=== PATIENT | female | born 1975 | race Caucasian/White ===

== ENCOUNTER 2024-08-31 07:39 | Emergency (ER) | payer BC ==
--- OUTSIDE RECORDS SUMMARY | 2024-08-31 07:42 | XMS REPORT | Continuity of Care Document ---
Author Name Unknown Address [address] [place] [address] thconnect Address [address] [address] [address] [place] [address] Care Team Providers Care Gas Truck Driver Name Role Phone [email or web address]_S Attending Clinician Unavaila ble [email or web address]_S Admitting Clinician Unavaila ble Payers Payer Name Policy Type Policy Number Effective Date Expirati on Date Source [place] [id number] 2023 00:00:00 Allergies, Adverse Reactions, Alerts Allergy Name Allergy Type Status Severity Reaction(s) Onset Date Inactive Date Treating Clinician Comments Source [place] Allergy to substanc e Active [facility] Social History Smoking Status Start Date Stop Date Source Never Smoker [facility] Medications Ordered Medication Name Filled Medication Name Start Date Stop Date Current Medication? Ordering Clinician Indication Dosage Frequency Signature (SIG) Comments Components Source atorvastati n 40 mg tablet TAKE 1 TABLET BY MOUTH EVERY DAY atorvastati n 40 mg tablet TAKE 1 TABLET BY MOUTH EVERY DAY No atorvastat in 40 mg tablet TAKE 1 TABLET BY MOUTH EVERY DAY [facility] buspirone 10 mg tablet buspirone 10 mg tablet No buspirone 10 mg tablet [facility] citalopram 40 mg tablet TAKE 1 TABLET BY MOUTH EVERY DAY citalopram 40 mg tablet TAKE 1 TABLET BY MOUTH EVERY DAY No citalopram 40 mg tablet TAKE 1 TABLET BY MOUTH EVERY DAY [facility] hydroxyzine pamoate 25 mg capsule TAKE 1 CAPSULE (25 MG) BY MOUTH 3 TIMES PER DAY NEEDED hydroxyzine pamoate 25 mg capsule TAKE 1 CAPSULE (25 MG) BY MOUTH 3 TIMES PER DAY NEEDED No hydroxyzin e pamoate 25 mg capsule TAKE 1 CAPSULE (25 MG) BY MOUTH 3 TIMES PER DAY NEEDED [facility] metoclopram aubrey 10 mg tablet TAKE 1 TABLET BY MOUTH EVERY 6 HOURS NEEDED metoclopram aubrey 10 mg tablet TAKE 1 TABLET BY MOUTH EVERY 6 HOURS NEEDED No metoclopra mide 10 mg tablet TAKE 1 TABLET BY MOUTH EVERY 6 HOURS NEEDED [facility] Mounjaro 10 mg/0.5 mL subcutaneou s pen injector INJECT 10 MG SUBCUTANEOU SLY WEEKLY Mounjaro 10 mg/0.5 mL subcutaneou s pen injector INJECT 10 MG SUBCUTANEOU SLY WEEKLY No Mounjaro 10 mg/0.5 mL subcutaneo us pen injector INJECT 10 MG SUBCUTANEO USLY WEEKLY [facility] Nurtec ODT 75 mg disintegrat ing tablet TAKE 1 TABLET BY MOUTH DAILY NEEDED. NO MORE THAN ONE DOSE IN 24 HOURS. Nurtec ODT 75 mg disintegrat ing tablet TAKE 1 TABLET BY MOUTH DAILY NEEDED. NO MORE THAN ONE DOSE IN 24 HOURS. No Nurtec ODT 75 mg disintegra ting tablet TAKE 1 TABLET BY MOUTH DAILY NEEDED. NO MORE THAN ONE DOSE IN 24 HOURS. [facility] ondansetron 4 [address] disintegr[address] ing tablet PLACE 1 TABLET ON THE TONGUE AND ALLOW TO DISSOLVE EVERY 8 HOURS NEEDED ondansetron 4 mg disintegrat ing tablet PLACE 1 TABLET ON THE TONGUE AND ALLOW TO DISSOLVE EVERY 8 HOURS NEEDED No ondansetro n [address] disintegra ting tablet PLACE 1 TABLET ON THE TONGUE AND ALLOW TO DISSOLVE EVERY 8 HOURS NEEDED [facility] trazodone 100 mg tablet TAKE 1 TABLET BY MOUTH DAILY NEEDED AT BEDTIME trazodone 100 mg tablet TAKE 1 TABLET BY MOUTH DAILY NEEDED AT BEDTIME No trazodone 100 mg tablet TAKE 1 TABLET BY MOUTH DAILY NEEDED AT BEDTIME [facility] trazodone 50 mg tablet TAKE 1 TABLET BY MOUTH EVERYDAY AT BEDTIME trazodone 50 mg tablet TAKE 1 TABLET BY MOUTH EVERYDAY AT BEDTIME No trazodone 50 mg tablet TAKE 1 TABLET BY MOUTH EVERYDAY AT BEDTIME [facility] Vital Signs Vital Name Observation Time Observation Value Comments S ource BP Diastolic 2024-01-27 00:00:00 82 mm[Hg] [facility] BP Systolic 2024-01-27 00:00:00 121 mm[Hg] [facility] BMI (Body Mass Index) 2024-01-27 00:00:00 30.3 kg/m2 [facility] Body Weight 2024-01-27 00:00:00 188 [lb_av] [facility] Height 2024-01-27 00:00:00 66 [in_i] [facility] Procedures Procedure Date / Time Performed Performing Clinicia n Source MAMMO, screening, digital, bilateral 2024-01-27 00:00:00 [facility] Cholecystectomy 2021-09-22 00[facility] 2020-09-22 00:00:00 [facility] Left Oophorectomy 2013-09-22 00:00:00 [facility] Plan of Care Planned Activity Planned Date Details Comments Source Diagnostic Test Pending 2024-01-27 00:00:00 pap, LB + HPV [code = pap, LB + HPV] [facility] Future Appointment 2025-01-26 14:00:00 Michelle tejeda, [address]; [address], [place] [address] [facility] Encounters Start Date/Time End Date/Time Encounter Type Admission Type Attending [facility] Facility Care Department Encounter ID Source 2024-01-27 00:00:00 2024-01-27 00:00:00 KEVIN Hernandez: [address], [address], [place] [address] , Ph. [facility] - [email or web address]_Martha [facility]* [id number] [facility] 2023-12-30 00:00:00 2023-12-30 00:00:00 Outpatient [email or web address]_Karlene wells_S [facility] [id number] [facility]
[2024-08-31 08:49] LABS: Absolute Eosinophils 0.3 K/uL (0-0.5); Absolute Lymphocytes (CBC) 0.8 K/uL (0.7-4.9); Absolute Monocytes 0.4 K/uL (0.1-1.3); Absolute Neutrophil 2.8 K/uL (1.8-8.0); Basophils % 0.9 % (0-1.3); Eosinophils % 6.5 % (0-4.4); Hematocrit 45.2 % (36.0-45.0); Hemoglobin 15.1 g/dL (12.0-15.0); Lymphocytes % 18.6 % (15.3-44.8); MCH 30.3 pg (27.0-35.0); MCHC 33.4 g/dL (32.0-36.0); MCV 90.7 fL (80-100); MPV 8.5 fL (7.6-11.3); Monocytes % 8.8 % (3.3-12.3); Neutrophils % 65.2 % (41.7-73.7); Nucleated Red Blood Cells % 0.2 % (0-0); Platelets 179 thou/uL (152-406); RBC Red Blood Cell Count 4.98 M/uL (3.86-4.86)
[2024-08-31 08:56] LABS: PT Prothrombin Time 10.6 SECONDS (9.4-12.5); PTT, Activated Partial Thromb 31.3 SECONDS (24.3-36.9); Protime INR 0.94
[2024-08-31 09:07] LABS: ALT/SGPT 22 U/L (13-56); AST/SGOT < 10 U/L (15-37); Albumin/Globulin Ratio 1.5 (1.1-1.8); Alkaline Phosphatase 60 U/L (45-117); Anion Gap 8.6 mEq/L (5.0-15.0); BUN Blood Urea Nitrogen 18 mg/dL (7-18); Bicarbonate 27 mEq/L (21-32); Bilirubin Direct < 0.2 mg/dL (0-0.2); Bilirubin Indirect, Calculated 0.4 mg/dL (0.2-0.8); Bilirubin Total 0.6 mg/dL (0.2-1.0); Globulin 2.7 g/dL (2.3-3.5); Glomerular Filtration Rate 58 ml/min (=/>90); Glucose Level 88 mg/dL (74-106); Magnesium 2.1 mg/dL (1.6-2.4); Potassium 3.6 mEq/L (3.5-5.1); Protein, Total 6.7 g/dL (6.4-8.2); Sodium Level 136 mEq/L (136-145); Troponin High Sensitivity < 3.0 pg/mL (<58.9)
--- NOTE | 2024-08-31 09:39 | RAD REPORT ---
EXAM: CT Head Brain Wo Cont HISTORY: syncope, fall COMPARISON: None TECHNIQUE: Multiple contiguous axial images were obtained for a CT of the brain without contrast. Sag ittal and coronal reformats were performed. One or more of the following dose reduction techniques were used: Automated exposure control, adjus tment of the mA and kV according to patient size, and iterative reconstruction. Unless otherwise specified, incidental findings do not require dedicated imaging follow-up. FINDINGS: No evidence of hydrocephalus, intracranial hemorrhage, or extra-axial fluid collection. The brain is normal in morphology. The calvarium is intact. The visualized paranasal sinuses and mastoid air cells are essentially clear . IMPRESSION: No evidence of acute intracranial abnormality.
--- NOTE | 2024-08-31 09:47 | RAD REPORT ---
EXAMINATION: ONE VIEW CHEST XR CLINICAL INDICATION: Female, 49 years old.,syncope TECHNIQUE: Frontal chest projection is submitted. Examination is limited by patient positioning and t echnique. COMPARISON: No prior exam. FINDINGS: The lungs are mildly hyperinflated suggesting COPD but grossly clear. No pneumothorax or sizable eff usion. The heart is normal in size. Mediastinal contours are unremarkable. Dextroconvex midthoracic scoliosis. IMPRESSION: No acute intrathoracic abnormalities.
--- NOTE | 2024-08-31 09:48 | RAD REPORT ---
EXAMINATION: XR Lumbar Spine 3 Views CLINICAL INDICATION: Female, 49 years old. [facility] MAIN PAIN Bed Name: 7 TECHNIQUE: AP, lateral, focused lateral lumbosacral views of the lumbar spine were obtained. COMPARISON: No prior exam. FINDINGS: For purposes of this dictation, it is assumed that there are 5 lumbar type vertebral bodies. ALIGNMENT: There is normal alignment of the lumbar spine. BONES: Vertebral bodies are normal in height. No aggressive osseous lesions. Multilevel endplate and facet remodeling, with facet arthropathy most pronounced at L4-5. DISCS: Disc heights are maintained. IMPRESSION: No acute lumbar spine abnormality. Degenerative changes as above.
--- NOTE | 2024-08-31 09:49 | RAD REPORT ---
EXAMINATION: XR Sacrum And Coccyx HISTORY: PAIN TECHNIQUE: 3 radiographic views of the sacrum and coccyx. FINDINGS: No acute fracture. Up to moderate sacroiliac joint degenerative changes more pronounced on the left. No focal suspicious osseous lesion. The visualized hip joints and symphysis pubis are intact.
--- NOTE | 2024-08-31 09:58 | EDPHYS ---
Physician Documentation [facility] Name: Joy Marcum Age: 49 yrs Sex: Female : 1975 Arrival Date: 08/31/2024 Time: 07:39 Bed 7 Private MD: ED Physician Jordin Ortiz HPI: 08/31 11:26 This 49 yrs old Female presents to ER via Ambulatory with complaints of Dizziness, Near ms3 Syncope, Vomiting. 11:26 Joy Marcum is a 49-year-old female who presents to the Emergency Department ms3 with a history of vomiting, which began on Friday and persisted through Friday. She reports being unable to keep food or water down during this period. On Friday, she experienced shakiness, dizziness, and a general feeling of weakness. She had an episode of syncope when she got up to go to work. Another episode occurred when she got up in the middle of the night to let her dog in, resulting in a fall. This morning, she felt faint in the shower, prompting her decision to come to the ER. She reports not having eaten much in the past three days and has been experiencing intermittent nausea. There is no focal numbness or weakness, and she denies any significant head injury from her falls.. Historical: - Allergies: 07:50 No Known Allergies; ss - Home Meds: 07:50 Tirzepitide [Active]; citalopram oral [Active]; ss - PMHx: 07:50 Anxiety; ss - Immunization history:: Client reports receiving the 2nd dose of the Covid vaccine. - Infectious Disease History:: Denies. - Social history:: Smoking status: Patient denies any tobacco usage or history of. ROS: 11:26 Constitutional: Negative for fever, and chills. Cardiovascular: Negative for chest ms3 pain, and palpitations. Respiratory: Negative for shortness of breath, cough, wheezing, and pleuritic chest pain, Abdomen/GI: Negative for abdominal pain, nausea, vomiting, diarrhea, and constipation, MS/Extremity: Negative for injury and deformity, Skin: Negative for injury, rash, and discoloration, 11:26 Neuro: Positive for syncope, Exam: 09:29 ECG was reviewed by the Attending Physician. ms3 11:26 Constitutional: This is a well developed, well nourished patient who is awake, alert, ms3 and in no acute distress. Chest/axilla: Normal chest wall appearance and motion. Nontender with no deformity. Cardiovascular: Regular rate and rhythm with a normal S1 and S2. No gallops, murmurs, or rubs. Normal PMI, no JVD. No pulse deficits. Respiratory: Lungs have equal breath sounds bilaterally, clear to auscultation and percussion. No rales, rhonchi or wheezes noted. No increased work of breathing, no retractions or nasal flaring. Abdomen/GI: Soft, non-tender, with normal bowel sounds. No distension or tympany. No guarding or rebound. No evidence of tenderness throughout. 11:26 Neuro: Orientation: is normal, to person, place, time \T\ situation. Mentation: is normal, Memory: is normal, Cranial nerves: grossly normal, CN II- XII are normal as tested, Cerebellar function: is grossly normal, normal finger to nose testing, Motor: is normal, Sensation: is normal, no obvious gross deficits, Gait: is steady, at a normal pace, Vital Signs: 07:48 BP 109 / 84; Pulse 93; Resp 16; Temp 98.2(TE); Pulse Ox 100% on R/A; Weight 66.68 kg; ss Height 5 ft. 6 in. ; Pain 5/10; 08:10 BP 101 / 78; Pulse 83; Temp 97.5(O); Pulse Ox 99% on R/A; sa1 10:00 BP 102 / 80; Pulse 82; Resp 16; Pulse Ox 100% on R/A; db 07:48 Body Mass Index 23.73 (66.68 kg, 167.64 cm) ss 07:48 Pain Scale: Adult ss MDM: 08:07 Medical Screening Exam initiated ms3 09:56 ED course: [place] syncope rule: No history of ingestive heart failure, ms3 hematocrit greater than 30, EKG normal, no shortness of breath, systolic blood pressure greater than 90. Patient is low risk. 11:26 Differential diagnosis: generalized weakness, hypovolemia, idiopathic dizziness, ms3 syncope. Data reviewed: vital signs, nurses notes, lab test result(s), EKG, radiologic studies, and as a result, I will discharge patient. Consideration of Admission/Observation Escalation of care including admission/observation considered. Discussed observation with patient and her and they declined.. Historians other than the Patient: Spouse/Significant Other: Patient's . Counseling: I had a detailed discussion with the patient and/or guardian regarding the historical points, exam findings, and any diagnostic results supporting the discharge/admit diagnosis, lab results, radiology results, the need for outpatient follow up, to return to the emergency department if symptoms worsen or persist or if there are any questions or concerns that arise at home. Special discussion:. ED course: Observation discussed with patient and her and they declined. Patient to follow-up with primary care physician in 2 to 3 days. Patient understands and agrees with plan. All questions were answered. Return precautions discussed include worsening symptoms, or any other concerns. On reevaluation patient is alert and oriented x 4, no apparent distress, nontoxic-appearing, ambulatory in the emergency department, speaking full sentences. 08/31 08:07 Order name: Basic Metabolic Panel; Complete Time: 09:29 ms3 08/31 08:07 Order name: CBC with Diff; Complete Time: 09:29 ms3 08/31 08:07 Order name: Hepatic Function; Complete Time: 09:29 ms3 08/31 08:07 Order name: Magnesium; Complete Time: 09:29 ms3 08/31 08:07 Order name: Protime (+inr); Complete Time: 09:29 ms3 08/31 08:07 Order name: Ptt, Activated; Complete Time: 09:29 ms3 08/31 08:07 Order name: Troponin High Sensitivity; Complete Time: 09:29 ms3 08/31 08:07 Order name: CT Head Brain wo Cont; Complete Time: 09:51 ms3 08/31 08:07 Order name: Chest Single View XRAY; Complete Time: 09:51 ms3 08/31 08:08 Order name: Lumbar Spine (3 Views) XRAY; Complete Time: 09:51 ms3 08/31 08:08 Order name: Sacrum And Coccyx XRAY; Complete Time: 09:51 ms3 08/31 08:07 Order name: Cardiac monitoring; Complete Time: 08:51 ms3 08/31 08:07 Order name: EKG - Nurse/Tech; Complete Time: 08:46 ms3 08/31 08:07 Order name: IV Saline Lock; Complete Time: 08:51 ms3 08/31 08:07 Order name: Labs collected and sent; Complete Time: 08:51 ms3 08/31 08:07 Order name: NPO; Complete Time: 08:51 ms3 08/31 08:07 Order name: O2 Per Protocol; Complete Time: 08:51 ms3 08/31 08:07 Order name: O2 Sat Monitoring; Complete Time: 08:52 ms3 08/31 08:07 Order name: Orthostatics; Complete Time: 08:52 ms3 EC:29 Rate is 85 beats/min. Rhythm is regular. QRS [place] is Normal. [place] interval is normal. QRS ms3 interval is normal. Clinical impression: Normal ECG. Interpreted by me. Reviewed by me. Administered Medications: No medications were administered Disposition Summary: 08/31/24 09:57 Discharge Ordered Notes: Location: Home ms3 Condition: Stable ms3 Diagnosis - Syncope ms3 - Nausea with vomiting, unspecified ms3 Followup: ms3 - With: Arturo Jackson DO - When: 2 - 3 days - Reason: Recheck today's complaints Followup: ms3 - With: Mickey Moreno MD - When: 2 - 3 days - Reason: Recheck today's complaints Discharge Instructions: - Discharge Summary Sheet ms3 - Syncope ms3 - Nausea and Vomiting, Adult, [place] ms3 Forms: - Medication Reconciliation Form ms3 - Antibiotic Education ms3 - Prescription Opioid Use ms3 - Patient Portal Instructions ms3 - Leadership Thank You Letter ms3 - Work release form db Prescriptions: - ondansetron 4 mg Oral Tablet,disintegrating - take 1 tablet ORAL route every 8 hours; 15 tablet; Refills: 0, Product ms3 Selection Permitted Signatures: Dispatcher [employer] EDSelena Carrasco, RN RN ss Jordin Ortiz DO DO ms3 Corrections: (The following items were deleted from the chart) 07:52 07:50 Home Meds: None; [facility] 07:52 07:50 Home Meds: anxiety; [facility] 07:52 07:50 PMHx: None; [facility] 07:52 07:50 PMHx: Anxiety; [facility] 08:08 08:08 Chest Single View+RAD.RAD.BRZ ordered. EDMS EDMS
--- NOTE | 2024-08-31 09:58 | ER ---
Nurse's Notes [facility] Name: Joy Marcum Age: 49 yrs Sex: Female : 1975 Arrival Date: 08/31/2024 Time: 07:39 Bed 7 Private MD: Diagnosis: Syncope;Nausea with vomiting, unspecified Presentation: 08/31 07:48 Chief complaint: Patient states: N/V Friday and Friday. Syncopal episode yesterday ss and again this morning. Coronavirus screen: Client denies travel out of the [place] in the last 14 days. Ebola Screen: Patient denies exposure to infectious person. Patient denies travel to an Ebola-affected area in the 21 days before illness onset. Initial Sepsis Screen: Does the patient meet any 2 criteria? No. Patient's initial sepsis screen is negative. Does the patient have a suspected source of infection? No. Patient's initial sepsis screen is negative. Risk Assessment: Do you want to hurt yourself or someone else? Patient reports no desire to harm self or others. Onset of symptoms was August 28, 2024. 07:48 Method Of Arrival: Ambulatory ss 07:48 Acuity: [facility] 3 ss Historical: - Allergies: 07:50 No Known Allergies; ss - Home Meds: 07:50 Tirzepitide [Active]; citalopram oral [Active]; ss - PMHx: 07:50 Anxiety; ss - Immunization history:: Client reports receiving the 2nd dose of the Covid vaccine. - Infectious Disease History:: Denies. - Social history:: Smoking status: Patient denies any tobacco usage or history of. Screenin:30 [facility] ED Fall Risk Assessment (Adult) History of falling in the last 3 months, db including since admission No falls in past 3 months (0 pts) Confusion or Disorientation No (0 pts) Intoxicated or Sedated No (0 pts) Impaired Gait No (0 pts) Mobility Assist Device Used No (0 pt) Altered Elimination No (0 pt) Score/Fall Risk Level 0 - 2 = Low Risk Oriented to surroundings, Maintained a safe environment. Abuse screen: Denies threats or abuse. Denies injuries from another. Nutritional screening: No deficits noted. Tuberculosis screening: No symptoms or risk factors identified. Assessment: 08:30 Reassessment: Patient appears in no apparent distress at this time. Patient and/or db family updated on plan of care and expected duration. Pain level reassessed. Patient is alert, oriented x 3, equal unlabored respirations, skin warm/dry/pink. General: Appears in no apparent distress. comfortable, Behavior is calm, cooperative. Pain: Denies pain. Neuro: Level of Consciousness is awake, alert, obeys commands, Oriented to person, place, time, situation. Respiratory: Airway is patent Respiratory effort is even, unlabored, Respiratory pattern is regular, symmetrical. GI: Abdomen is flat, non-distended. 10:00 Reassessment: Patient appears in no apparent distress at this time. Patient and/or db family updated on plan of care and expected duration. Pain level reassessed. Patient is alert, oriented x 3, equal unlabored respirations, skin warm/dry/pink. Patient states feeling better. Patient states symptoms have improved. Vital Signs: 07:48 BP 109 / 84; Pulse 93; Resp 16; Temp 98.2(TE); Pulse Ox 100% on R/A; Weight 66.68 kg; ss Height 5 ft. 6 in. ; Pain 5/10; 08:10 BP 101 / 78; Pulse 83; Temp 97.5(O); Pulse Ox 99% on R/A; sa1 10:00 BP 102 / 80; Pulse 82; Resp 16; Pulse Ox 100% on R/A; db 07:48 Body Mass Index 23.73 (66.68 kg, 167.64 cm) ss 07:48 Pain Scale: Adult ss ED Course: 07:40 Patient arrived in ED. im 07:50 Triage completed. ss 07:50 Arm band placed on right wrist. ss 07:57 Jordin Ortiz DO is Attending Physician. ms3 07:58 Patient has correct armband on for positive identification. Bed in low position. Call db light in reach. Side rails up X 1. Provided Education on: DISCHARGE AND FOLLOWUP. Pulse ox on. NIBP on. Warm blanket given. 07:58 Initial lab(s) drawn, by me, sent to lab. Inserted saline lock: 22 gauge in right db antecubital area, using aseptic technique. Blood collected. Flushed with 10 mL NS. 08:13 Sherri Moreno, RN is Primary Nurse. db 08:16 CT Head Brain wo Cont In Process Unspecified. EDMS 08:30 No provider procedures requiring assistance completed. db 08:31 Radiology exam delayed due to nurse stating she needed to do blood work. rs4 09:21 Chest Single View XRAY In Process Unspecified. EDMS 09:21 Lumbar Spine (3 Views) XRAY In Process Unspecified. EDMS 09:21 Sacrum And Coccyx XRAY In Process Unspecified. EDMS 09:57 Arturo Jackson DO is Referral Physician. ms3 09:57 Mickey Moreno MD is Referral Physician. ms3 10:56 IV discontinued, intact, bleeding controlled, No redness/swelling at site. db Administered Medications: No medications were administered Medication: 08:30 VIS not applicable for this client. db Outcome: 09:57 Discharge ordered by . ms3 10:56 Discharged to home ambulatory, with family, db 10:56 Condition: stable 10:56 Discharge instructions given to patient, Instructed on discharge instructions, follow up and referral plans. Prescriptions given X 1, 10:57 Patient left the ED. db Signatures: Dispatcher [employer] EDMS Selena Sepulveda, RN RN Jordin Ramirez DO DO ms3 Sherri Moreno, RN RN Jyoti Conte rs4 Naomie Milton Sultan sa1 Corrections: (The following items were deleted from the chart) 07:52 07:50 Home Meds: None; ss ss 07:52 07:50 Home Meds: anxiety; ss ss 07:52 07:50 PMHx: None; ss ss 07:52 07:50 PMHx: Anxiety; ss ss
[2024-08-31 11:47] VITALS: TEMP 97.5
[2024-08-31 11:48] VITALS: BP 102/80; O2SAT 100
--- NOTE | 2024-09-03 15:59 | EKG ---
Test Date: 2024-08-31 Test Time: 08:43:15 Clinical Geneticist: MEASUREMENT RESULTS: Intervals: Rate: 85 MS: 138 QRSD: 80 QT: 364 QTc: 433 [place]: P: 75 MS: 138 QRS: 78 T: 80 INTERPRETIVE STATEMENTS: Normal sinus rhythm Normal ECG Compared to ECG 01/21/2014 19:52:11 No significant changes Electronically Signed On 09-03-24 15:52:32 CONVERTIBLE SOFA BEDSPRING TESTER by Guy Franco
== END 2024-08-31 10:57 | disposition home or self-care (01) ==
LOC: ER 07:39
DX: R55 Syncope and collapse (principal); R11.2 Nausea with vomiting, unspecified; F41.9 Anxiety disorder, unspecified
CPT/HCPCS: 36415; 70450; 71045; 72100; 72220; 80048; 80076; 83735; 84484; 85025; 85610; 85730; 93005; 99284

== ENCOUNTER 2024-11-29 10:11 | Emergency (ER) | payer BC ==
--- OUTSIDE RECORDS SUMMARY | 2024-11-29 10:14 | XMS REPORT | Continuity of Care Document ---
Author Name Unknown Address [address] [address] [address] [place] [address] [facility] Address [address] [address] [address] [place] [address] Care Team Providers Care Program Trainer Name Role Phone [email or web address]_S Attending Clinician Unavaila ble [email or web address]_S Admitting Clinician Unavaila ble Payers Payer Name Policy Type Policy Number Effective Date Expirati on Date Source [place] [id number] 2023 00:00:00 Allergies, Adverse Reactions, Alerts Allergy [...] TABLET BY MOUTH EVERY 6 HOURS NEEDED [facility] Mounjaro 10 mg/0.5 mL subcutaneou s pen injector INJECT 10 MG SUBCUTANEOU SLY WEEKLY Mounjaro 10 mg/0.5 mL subcutaneou s pen injector INJECT 10 MG SUBCUTANEOU SLY WEEKLY No Mounjaro 10 mg/0.5 mL subcutaneo us pen injector INJECT 10 MG SUBCUTANEO USLY WEEKLY [facility] Nurtec ODT 75 mg disintegrat ing tablet [...] MORE THAN ONE DOSE IN 24 HOURS. [facility] ondansetron 4 mg disintegrat ing tablet [address] 1 TABLET ON THE TONGUE AND ALLOW TO DISSOLVE EVERY 8 HOURS NEEDED ondansetron 4 mg disintegrat ing tablet PLACE 1 TABLET ON THE TONGUE AND ALLOW TO DISSOLVE EVERY 8 HOURS NEEDED No ondansetro n 4 mg disintegra ting tablet PLACE 1 TABLET ON THE TONGUE AND ALLOW TO DISSOLVE EVERY 8 HOURS NEEDED [facility] trazodone 100 mg tablet TAKE 1 TABLET BY MOUTH DAILY NEEDED AT BEDTIME trazodone 100 mg tablet TAKE 1 TABLET BY MOUTH DAILY NEEDED AT BEDTIME No trazodone 100 mg tablet TAKE 1 TABLET BY MOUTH DAILY NEEDED AT BEDTIME [facility] trazodone 50 mg tablet TAKE 1 TABLET BY MOUTH EVERYDAY AT BEDTIME trazodone 50 mg tablet TAKE 1 TABLET BY MOUTH EVERYDAY AT BEDTIME No trazodone 50 mg tablet TAKE 1 TABLET BY MOUTH EVERYDAY AT BEDTIME [facility] Vital Signs Vital Name Observation Time Observation Value Comments S ource BP Diastolic 2024-01-27 00:00:00 82 mm[Hg] [facility] BP Systolic 2024-01-27 00:00:00 121 mm[Hg] [facility] BMI (Body Mass Index) 2024-01-27 00:00:00 30.3 kg/m2 [facility] Body Weight 2024-01-27 00:00:00 188 [lb_av] [facility] Height 2024-01-27 00:00:00 66 [in_i] [facility] Procedures Procedure Date / Time Performed Performing Clinicia n Source MAMMO, screening, digital, bilateral 2024-01-27 00:00:00 [facility] Cholecystectomy 2021-09-22 00:00:00 [facility] Procedure on Shoulder 2020-09-22 00:00:00 [facility] Left Oophorectomy 2013-09-22 00:00:00 [facility] Plan of Care Planned Activity Planned Date Details Comments Source Diagnostic Test Pending 2024-01-27 00:00:00 pap, LB + HPV [code = pap, LB + HPV] [facility] Future Appointment 2025-01-26 14:00:00 Michelle tejeda, [address]; [address], [place] [address] [facility] Encounters Start Date/Time End Date/Time Encounter Type Admission Type Attending [facility] Facility Care Department Encounter ID Source 2024-01-27 00:00:00 2024-01-27 00:00:00 KEVIN Hernandez: [address], [address], [place] [id number] , Ph. [facility] - GC_GCBZW_Martha [facility]* [id number] [facility] 2023-12-30 00:00:00 2023-12-30 00:00:00 Outpatient [email or web address]_Karlene wells_Jazmine [facility] [id number] [facility]
[2024-11-29 11:13] LABS: Specific Gravity 1.015 (1.005-1.030); Urine Bilirubin NEGATIVE (Negative); Urine Blood Negative (Negative); Urine Clarity Clear (Clear); Urine Color Colorless (Yellow); Urine Glucose NEGATIVE (Negative); Urine Ketones NEGATIVE (Negative); Urine Microscopic Reflex YN NO UMIC; Urine Nitrite NEGATIVE (Negative); Urine Protein NEGATIVE (Negative); Urine Urobilinogen Normal (Normal); Urine pH 6.5 (5.0-7.0)
[2024-11-29] MEDS ORDERED: MORPHINE 4 MG/ML SYR ONE (11:21)
[2024-11-29] MEDS ORDERED: ONDANSETRON 4 MG/2 ML VIAL ONE (11:21)
[2024-11-29 11:25] LABS: Absolute Eosinophils 0.2 K/uL (0-0.5); Absolute Monocytes 0.4 K/uL (0.1-1.3); Absolute Neutrophil 2.5 K/uL (1.8-8.0); Eosinophils % 3.9 % (0-4.4); Hematocrit 41.8 % (36.0-45.0); Hemoglobin 14.3 g/dL (12.0-15.0); MCH 31.1 pg (27.0-35.0); MCHC 34.2 g/dL (32.0-36.0); MCV 91.1 fL (80-100); MPV 8.4 fL (7.6-11.3); Neutrophils % 61.1 % (41.7-73.7); Nucleated Red Blood Cells % 0.1 % (0-0); Platelets 176 thou/uL (152-406); RBC Red Blood Cell Count 4.59 M/uL (3.86-4.86)
--- NOTE | 2024-11-29 11:25 | RAD REPORT ---
EXAMINATION: CT Stone Protocol CLINICAL INDICATION: Female, 49 years old. LLQ abd pain, left flank pain TECHNIQUE: CT abdomen and pelvis was performed, without IV contrast, as per department protocol. Axia l, sagittal and coronal reconstructions were obtained. One or more of the following dose reduction techniques were used: Automated exposure control, adjustment of the mA and kV according to the patien t size, and iterative reconstruction. Unless otherwise specified, incidental findings do not require dedicated imaging follow-up. COMPARISON: No prior exam. FINDINGS: The lack of intravenous contrast limits the sensitivity of this exam for evaluation of solid visceral organs, vascular structures, and retroperitoneum. LOWER CHEST: The visualized lung bases are clear. LIVER: Normal in size and contour. No focal lesion. BILIARY SYSTEM: Status post cholecystectomy. SPLEEN: Normal size. No focal lesion. PANCREAS: No mass, ductal dilation, or michael-pancreatic fluid. ADRENALS: Normal; no mass. KIDNEYS AND URETERS: Punctate calcific foci of the right upper pole not exceeding 3 mm. Normal size a nd contour. No hydronephrosis. URINARY BLADDER: Decompressed limiting evaluation. GASTROINTESTINAL TRACT: No evidence of bowel obstruction, significant free fluid, free air or abscess . APPENDIX: Normal appendix. LYMPH NODES: No lymphadenopathy. MUSCULOSKELETAL: No acute or suspicious osseous abnormality. ADDITIONAL FINDINGS: None. IMPRESSION: Nonobstructing right renal calculi not exceeding 3 mm. No other acute or concerning abnormalities in the abdomen or pelvis, with evaluation limited by lack of IV contrast.
[2024-11-29 11:43] LABS: Albumin 4.1 g/dL (3.4-5.0); Albumin/Globulin Ratio 1.5 (1.1-1.8); Anion Gap 8.7 mEq/L (5.0-15.0); Bilirubin Total 0.5 mg/dL (0.2-1.0); Globulin 2.7 g/dL (2.3-3.5); Potassium 3.7 mEq/L (3.5-5.1); Protein, Total 6.8 g/dL (6.4-8.2)
--- NOTE | 2024-11-29 12:07 | ER ---
Nurse's Notes [facility] Name: Joy Marcum Age: 49 yrs Sex: Female : 1975 Arrival Date: 11/29/2024 Time: 10:11 Bed 18 Private MD: Diagnosis: Abdominal pain, unspecified Presentation: 11/29 10:30 Chief complaint: N/V, chills, subjective fever, and intermittent LLQ pain that radiates ss to left flank x 1 week. Coronavirus screen: At this time, the client does not indicate any symptoms associated with coronavirus-19. Ebola Screen: No symptoms or risks identified at this time. Initial Sepsis Screen: Does the patient meet any 2 criteria? No. Patient's initial sepsis screen is negative. Does the patient have a suspected source of infection? No. Patient's initial sepsis screen is negative. Risk Assessment: Do you want to hurt yourself or someone else? Patient reports no desire to harm self or others. Onset of symptoms was November 22, 2024. 10:30 Method Of Arrival: Ambulatory ss 10:30 Acuity: THELMA 3 ss Historical: - Allergies: 10:32 Amoxicillin; ss - Home Meds: 10:32 citalopram oral [Active]; ss - PMHx: 10:32 Anxiety; ss - PSHx: 10:32 Left ovary removed; Left Shoulder; Cholecystectomy; ss - Immunization history:: Adult Immunizations up to date. - Infectious Disease History:: Denies. - Social history:: Smoking status: Patient denies any tobacco usage or history of. - Family history:: not pertinent. - Hospitalizations: : No recent hospitalization is reported. Screenin:25 [facility] ED Fall Risk Assessment (Adult) History of falling in the last 3 months, aa5 including since admission No falls in past 3 months (0 pts) Confusion or Disorientation No (0 pts) Intoxicated or Sedated No (0 pts) Impaired Gait No (0 pts) Mobility Assist Device Used No (0 pt) Altered Elimination No (0 pt) Score/Fall Risk Level 0 - 2 = Low Risk Oriented to surroundings, Maintained a safe environment, Educated pt \T\ family on fall prevention, incl call for assistance when getting out of bed, Assessed \T\ reinforced patient's understanding of fall precautions. Abuse screen: Denies threats or abuse. Nutritional screening: No deficits noted. Tuberculosis screening: No symptoms or risk factors identified. Assessment: 11:25 General: Appears uncomfortable, Behavior is calm, cooperative. Pain: Complains of pain aa5 in left lower quadrant Pain radiates to left flank Pain currently is 3 out of 10 on a pain scale. Quality of pain is described as sharp, Is intermittent. Neuro: Level of Consciousness is awake, alert, obeys commands, Oriented to person, place, time, situation. Cardiovascular: Patient's skin is warm and dry. Respiratory: Airway is patent Respiratory effort is even, unlabored, Respiratory pattern is regular, symmetrical. GI: Abdomen is round non-distended, Bowel sounds present X 4 quads. Abd is soft and non tender X 4 quads. Reports nausea, vomiting. : No signs and/or symptoms were reported regarding the genitourinary system. EENT: No signs and/or symptoms were reported regarding the EENT system. Derm: Skin is pink, warm \T\ dry. Musculoskeletal: Range of motion: intact in all extremities. 12:33 Reassessment: Patient is alert, oriented x 3, equal unlabored respirations, skin aa5 warm/dry/pink. Vital Signs: 10:30 Pulse 80; Resp 16; Temp 98.7(TE); Pulse Ox 100% on R/A; Weight 65.77 kg; Height 5 ft. 6 ss in. ; Pain 3/10; 11:25 BP 120 / 82; Pulse 72; Pulse Ox 100% on R/A; aa5 12:32 BP 111 / 73; Pulse 70; Resp 18 S; Pulse Ox 99% on R/A; aa5 10:30 Body Mass Index 23.40 (65.77 kg, 167.64 cm) ss 10:30 Pain Scale: Adult ss ED Course: 10:15 Patient arrived in ED. al6 10:15 Juan Carlos Kennedy MD is Attending Physician. rn 10:32 Triage completed. ss 10:36 Arm band placed on. ss 11:03 CT Stone Protocol In Process Unspecified. EDMS 11:16 Marry Coleman, RN is Primary Nurse. aa5 11:16 CBC with Diff Sent. bc6 11:16 CMP Sent. bc6 11:16 Lipase Sent. bc6 11:16 Initial lab(s) drawn, by me, sent to lab. Inserted saline lock: 20 gauge in left bc6 antecubital area, using aseptic technique. Blood collected. Flushed with 10 mL NS. 11:25 Patient has correct armband on for positive identification. Bed in low position. Call aa5 light in reach. Side rails up X 1. Adult w/ patient. Pulse ox on. NIBP on. 11:35 No provider procedures requiring assistance completed. aa5 12:33 IV discontinued, intact, bleeding controlled, No redness/swelling at site. Pressure aa5 dressing applied. Administered Medications: 11:32 Drug: Ondansetron IVP 4 mg IVP once; over 2 minutes Route: IVP; Site: left antecubital; aa5 11:35 Follow up: Response: No adverse reaction aa5 11:32 Drug: morphine IVP or IV 4 mg IVP once over 4 mins Route: IVP; Infused Over: 4 mins; aa5 Site: left antecubital; 11:35 Follow up: Response: No adverse reaction aa5 12:33 Drug: Ciprofloxacin PO 500 mg PO once Route: PO; aa5 12:33 Follow up: Response: No adverse reaction; Medication administered at discharge. aa5 12:33 Drug: metroNIDAZOLE PO 500 mg PO once Route: PO; aa5 12:33 Follow up: Response: No adverse reaction; Medication administered at discharge. aa5 Medication: 11:35 VIS not applicable for this client. aa5 Outcome: 12:06 Discharge ordered by . rn 12:35 Discharged to home ambulatory, with significant other, aa5 12:35 Condition: stable 12:35 Discharge instructions given to patient, Instructed on discharge instructions, follow up and referral plans. medication usage, Demonstrated understanding of instructions, follow-up care, medications, Prescriptions given X 4, 12:35 Patient left the ED. aa5 Signatures: Dispatcher [employer] EDMS Juan Carlos Kennedy MD MD rn Calderon, Audri, RN RN aa5 Selena Sepulveda RN RN ss Tiffani Robison 6 Lisa Jones al6 Corrections: (The following items were deleted from the chart) 10:36 10:30 Pulse 80bpm; Resp 16bpm; Pulse Ox 100% RA; Temp 98.7F Temporal; ss ss
--- NOTE | 2024-11-29 12:07 | EDPHYS ---
Physician Documentation [facility] Name: Joy Marcum Age: 49 yrs Sex: Female : 1975 Arrival Date: 11/29/2024 Time: 10:11 Bed 18 Private MD: ED Physician Juan Carlos Kennedy HPI: 11/29 10:49 This 49 yrs old Female presents to ER via Ambulatory with complaints of Low Back Pain, rn side pain. 10:49 The patient presents with abdominal pain in the left lower quadrant. rn 10:49 Onset: The symptoms/episode began/occurred 1 week(s) ago. The symptoms radiate to left rn back, left leg. Associated signs and symptoms: Pertinent positives: nausea and vomiting, Pertinent negatives: blood in stools, chest pain, dysuria, fever. Modifying factors: The symptoms are alleviated by nothing, the symptoms are aggravated by nothing. Severity of pain: At its worst the pain was moderate in the emergency department the pain is unchanged. The patient has experienced similar episodes in the past. Patient reports left lower quadrant abdominal pain that radiates to the left flank and down left leg. Began 1 week ago. No fever or chills. No trauma. No dysuria or hematuria. Patient reports similar to when had a kidney stone in the past. Was able to pass the stone on her own without intervention.. Historical: - Allergies: 10:32 Amoxicillin; ss - Home Meds: 10:32 citalopram oral [Active]; ss - PMHx: 10:32 Anxiety; ss - PSHx: 10:32 Left ovary removed; Left Shoulder; Cholecystectomy; ss - Immunization history:: Adult Immunizations up to date. - Infectious Disease History:: Denies. - Social history:: Smoking status: Patient denies any tobacco usage or history of. - Family history:: not pertinent. - Hospitalizations: : No recent hospitalization is reported. ROS: 10:49 Constitutional: Negative for fever, chills, and weight loss, Cardiovascular: Negative rn for chest pain, palpitations, and edema, Respiratory: Negative for shortness of breath, cough, wheezing, and pleuritic chest pain, Abdomen/GI: Positive for left-sided abdominal pain and flank pain Back: Positive for left flank pain : Negative for injury, bleeding, discharge, and swelling, MS/Extremity: Negative for injury and deformity, Neuro: Negative for headache, weakness, numbness, tingling, and seizure, Exam: 10:49 Constitutional: This is a well developed, well nourished patient who is awake, alert, rn and in no acute distress. Cardiovascular: Regular rate and rhythm . No pulse deficits. Respiratory: No increased work of breathing, no retractions or nasal flaring. Abdomen/GI: Soft, non-tender Back: No spinal tenderness. No costovertebral tenderness. Full range of motion. MS/ Extremity: Pulses equal, no cyanosis. Neuro: Awake and alert, GCS 15 Vital Signs: 10:30 Pulse 80; Resp 16; Temp 98.7(TE); Pulse Ox 100% on R/A; Weight 65.77 kg; Height 5 ft. 6 ss in. ; Pain 3/10; 11:25 BP 120 / 82; Pulse 72; Pulse Ox 100% on R/A; aa5 12:32 BP 111 / 73; Pulse 70; Resp 18 S; Pulse Ox 99% on R/A; aa5 10:30 Body Mass Index 23.40 (65.77 kg, 167.64 cm) ss 10:30 Pain Scale: Adult ss MDM: 10:15 Medical Screening Exam initiated rn 12:03 Differential diagnosis: appendicitis, diverticulitis, non-specific abd pain, rn pancreatitis, Pyelonephritis, Ureterolithiasis, urinary tract infection. Data reviewed: vital signs, nurses notes, lab test result(s), radiologic studies, CT scan, and as a result, I will discharge patient. Counseling: I had a detailed discussion with the patient and/or guardian regarding the historical points, exam findings, and any diagnostic results supporting the discharge/admit diagnosis, lab results, radiology results, the need for outpatient follow up, to return to the emergency department if symptoms worsen or persist or if there are any questions or concerns that arise at home. Response to treatment: the patient's symptoms have mildly improved after treatment, and as a result, I will discharge patient. Special discussion: I discussed with the patient/guardian in detail that at this point there is no indication for admission to the hospital. It is understood, however, that if the symptoms persist or worsen the patient needs to return immediately for re-evaluation. ED course: No clear etiology on CT or testing for patient's left-sided flank pain. Spoke with patient, given nausea and vomiting could be early pancreatitis versus mild diverticulitis. Will put on antibiotics and as needed Zofran with return precautions and discharge. Patient has never had pancreatitis. Has already had cholecystectomy. Denies alcohol intake. Very low likelihood of this being pancreatitis especially with lower abdominal pain/flank pain, no epigastric pain, and radiation to left leg.. 11/29 10:36 Order name: CBC with Diff; Complete Time: 11: rn 11/29 10:36 Order name: CMP; Complete Time: : rn 11/29 10:36 Order name: Lipase; Complete Time: : rn 11/29 10:36 Order name: Urinalysis w/ reflexes; Complete Time: : rn 11/29 10:36 Order name: CT Stone Protocol; Complete Time: : rn 11/29 10:36 Order name: IV Saline Lock; Complete Time: 11:16 rn 11/29 10:36 Order name: Labs collected and sent; Complete Time: 11:16 rn Administered Medications: 11:32 Drug: Ondansetron IVP 4 mg IVP once; over 2 minutes Route: IVP; Site: left antecubital; aa5 11:35 Follow up: Response: No adverse reaction aa5 11:32 Drug: morphine IVP or IV 4 mg IVP once over 4 mins Route: IVP; Infused Over: 4 mins; aa5 Site: left antecubital; 11:35 Follow up: Response: No adverse reaction aa5 12:33 Drug: Ciprofloxacin PO 500 mg PO once Route: PO; aa5 12:33 Follow up: Response: No adverse reaction; Medication administered at discharge. aa5 12:33 Drug: metroNIDAZOLE PO 500 mg PO once Route: PO; aa5 12:33 Follow up: Response: No adverse reaction; Medication administered at discharge. aa5 Disposition Summary: 11/29/24 12:06 Discharge Ordered Notes: Location: Home rn Problem: new rn Symptoms: have improved rn Condition: Stable rn Diagnosis - Abdominal pain, unspecified rn Followup: rn - With: Private Physician - When: As needed - Reason: Recheck today's complaints, Re-evaluation by your physician Discharge Instructions: - Discharge Summary Sheet rn - Abdominal Pain, Adult rn - Pain Without a Known Cause rn Forms: - Work release form bd - Medication Reconciliation Form rn - Antibiotic glove turner and former - Prescription Opioid Use rn - Patient Portal Instructions rn - Leadership Thank You Letter rn Prescriptions: - ondansetron 4 mg Oral Tablet,disintegrating - take 1 tablet ORAL route every 8 hours As needed; 12 tablet; Refills: 0, rn Product Selection Permitted - Flagyl 500 mg Oral Tablet - take 1 tablet ORAL route every 12 hours for 7 days; 14 tablet; Refills: 0, rn Product Selection Permitted - Cipro 500 mg Oral Tablet - take 1 tablet ORAL route every 12 hours for 7 days; 14 tablet; Refills: 0, rn Product Selection Permitted - Tramadol 50 mg Oral Tablet - take 1 tablet ORAL route every 8 hours as needed; 12 tablet; Refills: 0, rn Product Selection Permitted Signatures: Dispatcher [employer] EDMS Juan Carlos Kennedy MD MD rn Jared, Marry RN RN aa5 Selena Sepulveda RN RN ss Corrections: (The following items were deleted from the chart) 10:36 10:36 Stone Protocol+CT.RAD.BRZ ordered. [facility] EDID 10:51 10:49 Constitutional: This is a well developed, well nourished patient who is awake, rn alert, and in no acute distress. Cardiovascular: Regular rate and rhythm . No pulse deficits. Respiratory: No increased work of breathing, no retractions or nasal flaring. Abdomen/GI: Soft, non-tender MS/ Extremity: Pulses equal, no cyanosis. Neuro: Awake and alert, GCS 15, oriented to person, place, time, and situation. Cranial nerves II-XII grossly intact. Motor strength 5/5 in all extremities. Sensory grossly intact. Cerebellar exam normal. Normal gait. rn 12:05 12:03 ED course: No clear etiology on CT or testing for patient's left-sided flank rn pain. Spoke with patient, given nausea and vomiting could be early pancreatitis versus mild diverticulitis. Will put on antibiotics and as needed Zofran with return precautions and discharge.. rn
[2024-11-29] MEDS ORDERED: metroNIDAZOLE 500 MG TABLET ONE (12:21)
[2024-11-29] MEDS ORDERED: CIPROFLOXACIN HCL 500 MG TAB ONE (12:22)
[2024-11-29 12:46] VITALS: TEMP 98.7
[2024-11-29 12:49] VITALS: BP 111/73; O2SAT 99
== END 2024-11-29 12:35 | disposition home or self-care (01) ==
LOC: ER 10:11
DX: R10.32 Left lower quadrant pain (principal)
CPT/HCPCS: 85025; 36415; 81003; 83690; 80053; 76377; 74176; 96375; 96374; 99284; J2405

== ENCOUNTER 2024-12-01 10:29 | Emergency (ER) | payer BC ==
--- OUTSIDE RECORDS SUMMARY | 2024-12-01 10:33 | XMS REPORT | Continuity of Care Document ---
Author Name Unknown Address [address] [place] [address] [facility] [place] Address [address] [place] [address] [address] [place] [address] Care Team Providers Care Home Child Care Provider Name Role Phone [email or web address]_S Attending Clinician Jitendra woods [email or web address]_S Admitting Clinician Jazzya ble Payers Payer Name Policy Type Policy Number Effective Date Expirati on Date Source [place] [id number] 2023 00:00:00 Allergies, Adverse Reactions, Alerts Allergy [...] TABLET BY MOUTH EVERY 6 HOURS NEEDED [facility] Mounjaro 10 mg/0.5 mL subcutaneou s pen injector INJECT 10 MG SUBCUTANEOU SLY WEEKLY Mounjaro 10 mg/0.5 mL subcutaneou s pen injector INJECT 10 MG SUBCUTANEOU SLY WEEKLY No Mounjaro 10 mg/0.5 mL subcutaneo us pen injector INJECT 10 MG SUBCUTANEO USLY WEEKLY [facility] Nurtec ODT 75 mg disintegrat ing tablet [...] MORE THAN ONE DOSE IN 24 HOURS. [facility] ondansetron 4 mg disintegrat ing tablet PLACE 1 TABLET ON THE TONGUE AND ALLOW TO DISSOLVE EVERY 8 HOURS NEEDED ondansetron 4 mg disintegrat ing tablet PLACE 1 TABLET ON THE TONGUE AND ALLOW TO DISSOLVE EVERY 8 HOURS NEEDED No ondansetro n 4 mg disintegra ting tablet PLACE 1 TABLET ON THE TONGUE AND ALLOW TO DISSOLVE EVERY 8 HOURS NEEDED [facility] trazodone 100 mg tablet TAKE 1 TABLET BY MOUTH DAILY NEEDED AT BEDTIME trazodone 100 mg tablet TAKE 1 TABLET BY MOUTH DAILY NEEDED AT BEDTIME No trazodone 100 mg tablet TAKE 1 TABLET BY MOUTH DAILY NEEDED AT BEDTIME [facility] trazodone 50 mg tablet TAKE 1 TABLET BY MOUTH EVERYDAY AT BEDTIME trazodone 50 mg tablet TAKE 1 TABLET BY MOUTH EVERYDAY AT BEDTIME No trazodone 50 mg tablet TAKE 1 TABLET BY MOUTH EVERYDAY AT BEDTIME [facility] Vital Signs Vital Name Observation Time Observation Value Comments S ource BP Diastolic 2024-01-27 00:00:00 82 mm[Hg] [facility] BP Systolic 2024-01-27 00:00:00 121 mm[Hg] [facility] BMI (Body Mass Index) 2024-01-27 00:00:00 30.3 kg/m2 [facility] Body Weight 2024-01-27 00:00:00 188 [lb_av] [facility] Height 2024-01-27 00:00:00 66 [in_i] [facility] Procedures Procedure Date / Time Performed Performing Clinicia n Source MAMMO, screening, digital, bilateral 2024-01-27 00:00:00 [facility] Cholecystectomy 2021-09-22 00:00:00 [facility] Procedure on Shoulder 2020-09-22 00:00:00 [facility] Left Oophorectomy 2013-09-22 00:00:00 [facility] Plan of Care Planned Activity Planned Date Details Comments Source Diagnostic Test Pending 2024-01-27 00:00:00 pap, LB + HPV [code = pap, LB + HPV] [facility] Future Appointment 2025-01-26 14:00:00 Michelle tejeda, [address]; [address], [place] [address] [facility] Encounters Start Date/Time End Date/Time Encounter Type Admission Type Attending [facility] Facility Care Department Encounter ID Source 2024-01-27 00:00:00 2024-01-27 00:00:00 KEVIN Hernandez: [address], [address], [place] [address] , Ph. [facility] - GC_GCBZW_[facility]* [id number] [facility] 2023-12-30 00:00:00 2023-12-30 00:00:00 Outpatient [email or web address]_Karlene wells_Jazmine [facility] [id number] [facility]
[2024-12-01] MEDS ORDERED: MORPHINE 4 MG/ML SYR ONE (11:00)
[2024-12-01] MEDS ORDERED: ONDANSETRON 4 MG/2 ML VIAL ONE (11:00)
[2024-12-01] MEDS ORDERED: NA CHLORIDE 0.9% 1,000 ML ONE (11:22)
--- NOTE | 2024-12-01 11:27 | RAD REPORT ---
EXAMINATION: US PELVIS TRANSVAGINAL WITH DOPPLER CLINICAL INDICATION: Female 49 years old. LLQ pain TECHNIQUE: Real-time ultrasonography of the pelvis was performed transvaginally. Color and spectral D oppler evaluation of the ovaries was performed. COMPARISON: No prior exam. FINDINGS: UTERUS AND CERVIX: The uterus measures 6.0 x 3.8 x 3.1 cm (cervix to fundus x AP x transverse). The u terus is normal. No masses seen The endometrium is normal, 1 mm in thickness. RIGHT OVARY: Normal. The right ovary measures 1.7 x 1.3 x 1.0 cm. Normal color and spectral Doppler evaluation of the right ovary.. LEFT OVARY: Normal. The left ovary measures 1.8 x 1.2 x 1.0 cm. Normal color and spectral Doppler evaluation of the left ovary.. FREE FLUID: No free fluid. IMPRESSION: Unremarkable exmaination.
[2024-12-01 11:35] LABS: Absolute Eosinophils 0.2 K/uL (0-0.5); Absolute Lymphocytes (CBC) 0.9 K/uL (0.7-4.9); Absolute Monocytes 0.3 K/uL (0.1-1.3); Absolute Neutrophil 2.4 K/uL (1.8-8.0); Basophils % 0.9 % (0-1.3); Eosinophils % 5.1 % (0-4.4); Hemoglobin 13.3 g/dL (12.0-15.0); Lymphocytes % 24.1 % (15.3-44.8); MCH 31.7 pg (27.0-35.0); MCV 90.6 fL (80-100); MPV 8.6 fL (7.6-11.3); Monocytes % 8.7 % (3.3-12.3); Neutrophils % 61.2 % (41.7-73.7); Platelets 156 thou/uL (152-406); Red Cell Distribution Width 13.6 % (12.1-15.2)
[2024-12-01 11:39] LABS: Specific Gravity > 1.030 (1.005-1.030); Sqamous Epithelial <5 /HPF (None Seen); Urine Bacteria <20 /HPF (<20); Urine Bilirubin NEGATIVE (Negative); Urine Blood Negative (Negative); Urine Clarity Clear (Clear); Urine Color Yellow (Yellow); Urine Culture Reflex Order NOT NEEDED; Urine Glucose NEGATIVE (Negative); Urine Ketones NEGATIVE (Negative); Urine Microscopic Reflex YN ORDER UMIC; Urine Mucus 4+ /HPF (None Seen); Urine Nitrite NEGATIVE (Negative); Urine Protein 1+ (Negative); Urine RBC <5 /HPF (None Seen); Urine Urobilinogen Normal (Normal); Urine WBC <5 /HPF (<5)
[2024-12-01 11:51] LABS: Albumin 3.8 g/dL (3.4-5.0); Albumin/Globulin Ratio 1.6 (1.1-1.8); Anion Gap 7.5 mEq/L (5.0-15.0); Bilirubin Total 0.3 mg/dL (0.2-1.0); Globulin 2.4 g/dL (2.3-3.5); Potassium 3.5 mEq/L (3.5-5.1); Protein, Total 6.2 g/dL (6.4-8.2)
--- NOTE | 2024-12-01 11:53 | RAD REPORT ---
EXAMINATION: CT ABDOMEN AND PELVIS WITH CONTRAST CLINICAL INDICATION: LLQ abd pain TECHNIQUE: CT abdomen and pelvis was performed, after the administration of IV contrast, as per [facility] protocol. Axial, sagittal and coronal reconstructions were obtained. One or more of the following dose reduction techniques were used: Automated exposure control, adjustment of the mA and k V according to patient size, and iterative reconstruction. Unless otherwise specified, incidental findings do not require dedicated imaging follow-up. COMPARISON: No prior exam. FINDINGS: LOWER CHEST: The visualized lung bases are clear. LIVER: Normal in size and contour. No focal lesion. Cholecystectomy clips. SPLEEN: Normal size. No focal lesion. PANCREAS: No mass, ductal dilation, or michael-pancreatic fluid. ADRENALS: Normal; no mass. KIDNEYS: Normal size and contour. No hydronephrosis. GASTROINTESTINAL TRACT: No evidence of free air, significant intra-abdominal free fluid, bowel obstru ction or abscess. APPENDIX: Appendix not visualized, but no inflammatory changes in region of appendix. LYMPH NODES: No lymphadenopathy. MUSCULOSKELETAL: Minimal degenerative anterolisthesis L5 on S1. IMPRESSION: No acute or concerning abnormalities seen in the abdomen or pelvis.
--- NOTE | 2024-12-01 13:10 | EDPHYS ---
Physician Documentation [facility] Name: Joy Marcum Age: 49 yrs Sex: Female : 1975 Arrival Date: 12/01/2024 Time: 10:29 Bed 6 Private MD: ED Physician Juan Carlos Kennedy HPI: 12/01 10:47 This 49 yrs old Female presents to ER via Unassigned with complaints of Abdominal Pain, rn Lower Back Pain. 10:47 The patient presents with abdominal pain in the left lower quadrant. Onset: The rn symptoms/episode began/occurred 2 day(s) ago. The symptoms radiate to left back. The symptoms are described as crampy, sharp. Modifying factors: The symptoms are alleviated by nothing, the symptoms are aggravated by touching the area. Severity of pain: At its worst the pain was moderate in the emergency department the pain is unchanged. The patient has experienced a previous episode. The patient has been recently seen at the [facility] Emergency Department. Patient seen here 2 days ago, no acute findings at that time. Reports pain is persistent, got better for a day or so but now back. Reports left lower back pain and left lower quadrant abdominal pain. Reports nausea. No fever. Positive for diarrhea that is nonbloody. Taking antibiotics for possible diverticulitis. Patient states does not have tube or cyst on the left side due to previous ectopic 11 years ago.. 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 - Infectious Disease History:: Denies. - Social history:: Smoking status: Patient denies any tobacco usage or history of. - Family history:: not pertinent. - Hospitalizations: : No recent hospitalization is reported. ROS: 10:47 Constitutional: Negative for fever, chills, and weight loss, Cardiovascular: Negative rn for chest pain, palpitations, and edema, Respiratory: Negative for shortness of breath, cough, wheezing, and pleuritic chest pain, Abdomen/GI: Negative for vomiting, constipation, Back: Positive for left lower back pain MS/Extremity: Negative for injury and deformity, Skin: Negative for injury, rash, and discoloration, Neuro: Negative for headache, weakness, numbness, tingling, and seizure, Exam: 10:47 Constitutional: This is a well developed, well nourished patient who is awake, alert, rn appears uncomfortable but ambulatory to room without assistance Cardiovascular: Regular rate and rhythm. No pulse deficits. Respiratory: No increased work of breathing, no retractions or nasal flaring. Abdomen/GI: Soft, mild left lower quadrant tenderness. No rebound or guarding MS/ Extremity: Pulses equal, no cyanosis. Neuro: Awake and alert, GCS 15, normal strength and gait Vital Signs: 10:47 BP 113 / 85; Pulse 72; Resp 18; Temp 97.3; Pulse Ox 99% ; Weight 65.77 kg; Height 5 ft. ph 6 in. ; Pain 6/10; 12:30 BP 111 / 82; Pulse 61; Resp 15; Pulse Ox 97% ; Pain 1/10; cm10 13:26 BP 118 / 88; Pulse 67; Resp 16; Pulse Ox 100% on R/A; id 13:29 BP 112 / 81; Pulse 67; Resp 15; Pulse Ox 100% ; cm10 10:47 Body Mass Index 23.40 (65.77 kg, 167.64 cm) ph 10:47 Pain Scale: Adult ph 12:30 Pain Scale: Adult cm10 MDM: 10:32 Medical Screening Exam initiated rn 13:08 Differential diagnosis: diverticulitis, non-specific abd pain, Pyelonephritis, rn Ureterolithiasis, urinary tract infection, Radiculopathy, ovarian cyst, ovarian torsion. Data reviewed: vital signs, nurses notes, lab test result(s), radiologic studies, CT scan, ultrasound, and as a result, I will discharge patient. Counseling: I had a detailed discussion with the patient and/or guardian regarding the historical points, exam findings, and any diagnostic results supporting the discharge/admit diagnosis, lab results, radiology results, the need for outpatient follow up, to return to the emergency department if symptoms worsen or persist or if there are any questions or concerns that arise at home. Response to treatment: the patient's symptoms have markedly improved after treatment, and as a result, I will discharge patient. Special discussion: I discussed with the patient/guardian in detail that at this point there is no indication for admission to the hospital. It is understood, however, that if the symptoms persist or worsen the patient needs to return immediately for re-evaluation. ED course: No acute findings and workup today including CT abdomen pelvis and ultrasound. Patient was under the impression she did not have a left ovary. Ultrasound does show bilateral ovaries and I reviewed surgical note from 11 years ago, was only a partial salpingectomy and did not take the ovary. Will treat for possible radiculopathy as Friday she had radiation of pain down the left leg as well as the back pain. I have personally reviewed all of the results, including but not limited to blood tests and imaging deemed necessary to safely discharge this patient at this time. All results given to and printed out for patient. I personally went over all the results with the patient and answered all questions. Patient will follow-up with PCP and or specialist as discussed. Return precautions given and understood.. 12/01 10:41 Order name: CBC with Diff; Complete Time: 11:58 ph 12/01 10:41 Order name: CMP; Complete Time: 11:58 ph 12/01 10:41 Order name: Lipase; Complete Time: 11:58 ph 12/01 10:59 Order name: Urinalysis w/ reflexes; Complete Time: 11:58 rn 12/01 10:41 Order name: CT Abd/Pelvis - IV Contrast Only; Complete Time: 11:58 ph 12/01 11:14 Order name: Transvaginal Study Probe; Complete Time: 11:28 EDMS 12/01 10:41 Order name: IV Saline Lock; Complete Time: 11:29 ph 12/01 10:41 Order name: Labs collected and sent; Complete Time: 11:29 ph Administered Medications: 11:29 Drug: NS 0.9% IV 1000 ml IV at 1000 ml once; to be given as a bolus over 60 minutes cm10 Route: IV; Rate: 1000 ml; Site: right antecubital; 12:30 Follow up: Response: No adverse reaction; IV Status: Completed infusion; IV Intake: cm10 1000ml 11:30 Drug: Ondansetron IVP 4 mg IVP once; over 2 minutes Route: IVP; Site: right antecubital;cm10 12:30 Follow up: Response: No adverse reaction; Pain is decreased cm10 11:30 Drug: morphine IVP or IV 4 mg IVP once over 4 mins Route: IVP; Infused Over: 4 mins; cm10 Site: right antecubital; 12:30 Follow up: Response: No adverse reaction; Pain is decreased cm10 13:39 Drug: Decadron - Dexamethasone IVP 10 mg IVP once Route: IVP; Site: right antecubital; cm10 13:39 Follow up: Response: Medication administered at discharge. cm10 13:39 Drug: Gabapentin PO 300 mg PO once Route: PO; cm10 13:39 Follow up: Response: Medication administered at discharge. 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 - Prescription Opioid Use rn - Patient Portal Instructions rn - Leadership Thank You Letter rn Prescriptions: - gabapentin 100 mg Oral capsule - take 1 capsule ORAL route every 12 hours As needed; 14 capsule; Refills: 0, rn Product Selection Permitted - Medrol (Cosme) 4 mg Oral Tablets, Dose Pack - take 1 tablet ORAL route as directed - follow package instructions; 1 packet; rn Refills: 0, Product Selection Permitted Signatures: Dispatcher [employer] Juan Carlos Moore MD MD rn Hall, Patricia, RN RN ph Martinez, Clarissa RN RN cm10 Corrections: (The following items were deleted from the chart) 10:45 10:45 Pelvis Complete+US.RAD.BRZ ordered. EDMS EDMS
--- NOTE | 2024-12-01 13:10 | ER ---
Nurse's Notes [facility] Name: Joy Marcum Age: 49 yrs Sex: Female : 1975 Arrival Date: 12/01/2024 Time: 10:29 Bed 6 Private MD: Diagnosis: Low back pain;Radiculopathy, lumbosacral region Presentation: 12/01 10:47 Chief complaint: Patient states: LLQ and LLback pain, N/V seen in ED 2 days ago and dx ph w/ diverticulitis, started feeling better but felt bad again this morning. Coronavirus screen: Vaccine status: Patient reports receiving the 2nd dose of the covid vaccine. Ebola Screen: No symptoms or risks identified at this time. Initial Sepsis Screen: Does the patient meet any 2 criteria? No. Patient's initial sepsis screen is negative. Does the patient have a suspected source of infection? No. Patient's initial sepsis screen is negative. Risk Assessment: Do you want to hurt yourself or someone else? Patient reports no desire to harm self or others. Onset of symptoms was December 01, 2024. 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 - Infectious Disease History:: Denies. - Social history:: Smoking status: Patient denies any tobacco usage or history of. - Family history:: not pertinent. - Hospitalizations: : No recent hospitalization is reported. Screenin:40 [facility] ED Fall Risk Assessment (Adult) History of falling in the last 3 months, cm10 including since admission No falls in past 3 months (0 pts) Confusion or Disorientation No (0 pts) Intoxicated or Sedated No (0 pts) Impaired Gait No (0 pts) Mobility Assist Device Used No (0 pt) Altered Elimination No (0 pt) Score/Fall Risk Level 0 - 2 = Low Risk Oriented to surroundings, Maintained a safe environment, Hourly rounding (assess needs \T\ fall precautionary measures) done. Abuse screen: Denies threats or abuse. Denies injuries from another. Nutritional screening: No deficits noted. Tuberculosis screening: No symptoms or risk factors identified. Assessment: 11:30 General: Appears in no apparent distress. uncomfortable, Behavior is calm, cooperative, cm10 appropriate for age. Pain: Complains of pain in left lower quadrant Pain radiates to low back area and left low back Pain currently is 8 out of 10 on a pain scale. Quality of pain is described as crampy, Pain began 2-3 days ago. Neuro: No deficits noted. Level of Consciousness is awake, alert, obeys commands, Oriented to person, place, time, situation, Appropriate for age. Respiratory: No deficits noted. Airway is patent Respiratory effort is even, unlabored, Respiratory pattern is regular, symmetrical. GI: Bowel sounds present X 4 quads. Abd is soft Abdomen is tender to palpation in left lower quadrant Reports lower abdominal pain, cramping. 12:44 Reassessment: Patient appears in no apparent distress at this time. Patient and/or cm10 family updated on plan of care and expected duration. Pain level reassessed. Patient is alert, oriented x 3, equal unlabored respirations, skin warm/dry/pink. Patient states feeling better. Patient states symptoms have improved. Vital Signs: 10:47 BP 113 / 85; Pulse 72; Resp 18; Temp 97.3; Pulse Ox 99% ; Weight 65.77 kg; Height 5 ft. ph 6 in. ; Pain 6/10; 12:30 BP 111 / 82; Pulse 61; Resp 15; Pulse Ox 97% ; Pain 1/10; cm10 13:26 BP 118 / 88; Pulse 67; Resp 16; Pulse Ox 100% on R/A; id 13:29 BP 112 / 81; Pulse 67; Resp 15; Pulse Ox 100% ; cm10 10:47 Body Mass Index 23.40 (65.77 kg, 167.64 cm) ph 10:47 Pain Scale: Adult ph 12:30 Pain Scale: Adult cm10 ED Course: 10:32 Patient arrived in ED. cj3 10:32 Juan Carlos Kennedy MD is Attending Physician. rn 10:48 Dyan Mueller, CHARAN is Primary Nurse. cm10 10:48 Triage completed. ph 10:49 Arm band placed on Patient placed in an exam room, on a stretcher. ph 11:14 Transvaginal Study Probe In Process Unspecified. EDMS 11:29 CBC with Diff Sent. cm10 11:29 CMP Sent. cm10 11:29 Lipase Sent. cm10 11:30 Initial lab(s) drawn, by me, sent to lab. Urine collected: clean catch specimen, cm10 cloudy, reagan colored. Inserted saline lock: 20 gauge in right antecubital area, using aseptic technique. Blood collected. Flushed with 10 mL NS. 11:39 CT Abd/Pelvis - IV Contrast Only In Process Unspecified. EDMS 13:40 Patient has correct armband on for positive identification. Provided Education on: cm10 Follow-up instructions. 13:40 No provider procedures requiring assistance completed. IV discontinued, intact, cm10 bleeding controlled, No redness/swelling at site. Pressure dressing applied. Administered Medications: 11:29 Drug: NS 0.9% IV 1000 ml IV at 1000 ml once; to be given as a bolus over 60 minutes cm10 Route: IV; Rate: 1000 ml; Site: right antecubital; 12:30 Follow up: Response: No adverse reaction; IV Status: Completed infusion; IV Intake: cm10 1000ml 11:30 Drug: Ondansetron IVP 4 mg IVP once; over 2 minutes Route: IVP; Site: right antecubital;cm10 12:30 Follow up: Response: No adverse reaction; Pain is decreased cm10 11:30 Drug: morphine IVP or IV 4 mg IVP once over 4 mins Route: IVP; Infused Over: 4 mins; cm10 Site: right antecubital; 12:30 Follow up: Response: No adverse reaction; Pain is decreased cm10 13:39 Drug: Decadron - Dexamethasone IVP 10 mg IVP once Route: IVP; Site: right antecubital; cm10 13:39 Follow up: Response: Medication administered at discharge. cm10 13:39 Drug: Gabapentin PO 300 mg PO once Route: PO; cm10 13:39 Follow up: Response: Medication administered at discharge. cm10 Medication: 13:40 VIS not applicable for this client. cm10 Intake: 12:30 IV: 1000ml; Total: 1000ml. cm10 Outcome: 13:09 Discharge ordered by . rn 13:40 Discharged to home ambulatory, with significant other, cm10 13:40 Condition: good 13:40 Discharge instructions given to patient, Instructed on discharge instructions, follow up and referral plans. medication usage, Demonstrated understanding of instructions, follow-up care, medications, Prescriptions given X 2, 13:41 Patient left the ED. cm10 Signatures: Dispatcher [employer] EDMS Juan Carlos Kennedy MD MD rn Hall, Patricia, RN RN ph Martinez, Clarissa, RN RN cm10 Tila Worthy 3 Tania Black RN RN id
[2024-12-01] MEDS ORDERED: GABAPENTIN 300 MG CAP ONE (13:33)
[2024-12-01] MEDS ORDERED: dexAMETHasone 10 MG/ML VIAL ONE (13:33)
[2024-12-01 13:45] VITALS: TEMP 97.3
[2024-12-01 13:48] VITALS: O2SAT 100
[2024-12-01 13:49] VITALS: BP 112/81
== END 2024-12-01 13:41 | disposition home or self-care (01) ==
LOC: ER 10:29
DX: M54.17 Radiculopathy, lumbosacral region (principal); R10.32 Left lower quadrant pain
CPT/HCPCS: 96361; 85025; 81001; 36415; 83690; 80053; 74177; 76830; 96375; 96374; 99284; Q9967; J1100; J2405; J7030